=== PATIENT | male | born 1960 | race Caucasian/White ===

== ENCOUNTER → 2016-10-30 08:14 | Outpatient (CLI) | payer MEDICARE ==
[2016-01-30 06:29] VITALS: BMI 35.7
[~2016-10-30 08:14] MED LIST: CRESTOR20 MG PO; HYDROCODONE-APA1 TAB PO; LOTREL 5/10 MG1 CAP PO; LUNESTA3 MG PO; NAPROSYN500 MG PO; OMEPRAZOLE40 MG PO; PROTONIX40 MG PO; RESTORIL15 MG PO; SPIRIVA18 MCG INH; TOPROL XL25 MG PO; VENTOLIN HFA18 GM INH; ZYRTEC10 MG PO
== END | disposition home or self-care (01) ==
LOC: D.CT 10-28 08:30
DX: R91.8 Other nonspecific abnormal finding of lung field (principal)

== ENCOUNTER → 2018-01-06 10:36 | Outpatient (CLI) | payer OTHER ==
[2016-01-30 06:29] VITALS: BMI 35.7
[~2018-01-06 10:36] MED LIST changes: +AMBIEN10 MG PO; +MOBIC7.5 MG PO; +NITROSTAT0.4 MG SL
== END | disposition home or self-care (01) ==
LOC: D.CT 12-23 08:30 → D.MRI 12-23 08:30 → D.CT 10:30 → D.MRI 10:36 → D.CT 11:30
DX: R91.8 Other nonspecific abnormal finding of lung field (principal); M54.5 Low back pain

== ENCOUNTER 2018-01-29 19:55 | Emergency (ER) | payer OTHER ==
[~2018-01-29] VITALS: Ht 180.3 cm; Wt 108.0 kg
[~2018-01-29 19:55] MED LIST changes: -AMBIEN10 MG PO; -MOBIC7.5 MG PO; -NITROSTAT0.4 MG SL
[2018-01-29 20:00] VITALS: Ht 180.3 cm; Wt 108.0 kg
[2018-01-29] MEDS ORDERED: AMBIEN10 MG PO (20:02)
[2018-01-29] MEDS ORDERED: MOBIC7.5 MG PO (20:03)
[2018-01-29 20:41] LABS: BASOPHILS 0.5 % (0-2); HEMATOCRIT 42.6 % (42.0-54.0); HEMOGLOBIN 14.6 g/dL (13.5-17.5); IMMATURE GRANULOCYTES 0.1 % (0-5); LYMPHOCYTES 29.5 % (15-50); MCH 32.1 pg (26.0-34.0); MCHC 34.3 g/dL (31.0-37.0); MCV 93.6 fL (80.0-100.0); MEAN PLATELET VOLUME 9.5 fL (7.4-10.4); NEUTROPHILS 60.9 % (40-80); PLATELET COUNT 279 10x3/uL (130-400); RBC 4.55 10x6/uL (4.20-6.10); RDW 13.5 % (11.5-14.5); WBC 9.9 10x3/uL (4.8-10.8)
[2018-01-29 20:49] LABS: APTT 26.5 SECONDS (22.8-39.4); INR 1.02 (0.85-1.17)
[2018-01-29 21:04] LABS: ALBUMIN 3.5 g/dL (3.4-5.0); ALKALINE PHOSPHATASE 88 U/L (46-116); ALT (SGPT) 17 U/L (10-68); BILIRUBIN - TOTAL 0.34 mg/dL (0.2-1.3); CALCIUM 8.7 mg/dL (8.5-10.1); CARBON DIOXIDE 27.1 mmol/L (21.0-32.0); CHLORIDE - SERUM 105 mmol/L (98-107); CREATININE - SERUM 0.9 mg/dL (0.6-1.3); POTASSIUM - SERUM 3.3 mmol/L (3.5-5.1); PROTEIN - SERUM 7.3 g/dL (6.4-8.2); SODIUM 140 mmol/L (136-145); UREA NITROGEN 14 mg/dL (7-18); eGFR NON AFRICAN AMERICAN > 90 mL/min (90-120)
[2018-01-29 21:09] LABS: CKMB 1.7 U/L (0.0-3.6); CREATINE KINASE 267 UL (21-232); PRO BNP 83 pg/mL (0-125)
[2018-01-29 21:10] LABS: CALC OSMOLALITY 282 mosm/kg (275-300); GLUCOSE 156 mg/dL (74-106); TROPONIN-I < 0.017 ng/mL (0.000-0.060)
[2018-01-30] MEDS ORDERED: NITROSTAT0.4 MG SL (00:31)
[2018-01-30 00:55] VITALS: BP 128/76
== END 2018-01-30 00:55 | disposition home or self-care (01) ==
LOC: D.ER 19:55
PROVIDERS: Family Medicine
DX: R07.9 Chest pain, unspecified (principal); I20.9 Angina pectoris, unspecified; I10 Essential (primary) hypertension; F17.200 Nicotine dependence, unspecified, uncomplicated

== ENCOUNTER → 2018-03-14 08:32 | Outpatient (CLI) | payer OTHER ==
[~2018-03-14] VITALS: Ht 180.3 cm; Wt 108.2 kg
--- NOTE | ~2018-03-14 | HEMODYNAMI ---
PATIENT:PAO BARBA MEDICAL RECORD: [id number] : 60 LOCATION:[facility] ADMISSION DATE: 03/14/18 Generatedon:03/14/201811:10 Patient name: PAO BARBA Patient #: [id number] SSN: : 1960 Date of study: 03/14/2018 Page: Of Hemodynamic Procedure Report Patient Data Patient Demographics Procedure consent was obtained First Name: PAO Gender: Male Last Name: JAMESON : 1960 Middle Initial: E Age: 57 year(s) Patient #: [id number] Race: Unknown Additional ID: [id number] Contact details Address: [place] [address] State: [place] City: [place] Zip code: [address] Past Medical History Allergies Allergen Reaction Date Comments Reported Tegretol 03/14/2018 Admission Admission Data Admission Date: 03/14/2018 Admission Time: 8:32 Lab Results Lab Result Date: 03/14/2018 Lab Result Time: 0:00 Biochemistry Name Units Result Min Max BUN mg/dl 25 --(----)-* 7 18 Creatinine mg/dl 0.9 --(-*--)-- 0.6 1.3 CBC Name Units Result Min Max Hemoglobin g/dl 14.9 --(-*--)-- 13.5 17.5 Procedure Procedure Types Cath Procedure Diagnostic Procedure [facility] w/Coronaries FFR/IVUS Intra-Coronary IVUS Initial PCI Procedure Coronary Stent Coronary Stent Initial Procedure Description Procedure Date Procedure Date: 03/14/2018 Procedure Start Time: 10:51 Procedure End Time: 11:07 Procedure Staff Name Function Ayush Lantigua MD Performing Physician Konrad Meza RT Monitor Carleen Rosas RT Scrub Lena Pineda RN Nurse Jessi Patton RN Nurse Procedure Data Cath Procedure Fluoroscopy Diagnostic fluoroscopy Total fluoroscopy Time: 3.1 time: 3.1 min min Diagnostic fluoroscopy Total fluoroscopy dose: 945 dose: 945 mGy mGy Contrast Material Contrast Material Type Amount (ml) Isovue 300 112 Entry Location Entry Primary Successful Side Size Upsize Upsize Entry Closure Ervin ccessful Closure Location (Fr) 1 (Fr) 2 (Fr) Remarks Device Remarks Radial Right 6 Fr Mechanical artery Short Compression Diagnostic catheters Device Type Used For End Catheter Placement DIAGNOSTIC Stuart 110cm 5 LV Angiography Fr catheter ([id number]) Procedure Complications No complications Procedure Medications Medication Administration Route Dosage 0.9% NaCl I.V. 100 ml/hr Oxygen etCO2 Nasal cannula 2 l/min Lidocaine 2% added to field 20 Heparin Flush Bag added to field 2 bags (1000units/500ml NS) Versed I.V. 2 mg Fentanyl I.V. 100 mcg Radial Cocktail I.A. 1 syringe (Verapomil 2mg/Nitro 400mcg/Heparin 1500units) Fentanyl I.V. 100 mcg Heparin Bolus I.V. 4000 units Integrilin (Bolus I.V. 9.5 ml 2mg/ml) Plavix P.O. 600 mg Hemodynamics Rest HGB: 14.9 (g/dl) Heart Rate: 69 (bpm) Snapshots Pre Cath Intra NCS Post Cath Vital Signs Time Heart Resp SPO2 etCO2 NIBP (mmHg) Rhythm Pain Sedation Rate (ipm) (%) (mmHg) Status Level (bpm) 10:41:03 66 31 94 29 125/78(96) NSR 0 (11) 10(A) , No pain 10:45:19 67 18 95 29.2 121/73(89) NSR 0 (11) 10(A) , No pain 10:49:39 76 21 93 30 107/71(90) NSR 0 (11) 10(A) , No pain 10:53:51 80 23 92 32.2 113/72(89) NSR 0 (11) 9(A) , No pain 10:58:07 69 17 93 30 122/72(100) NSR 0 (11) 9(A) , No pain 11:02:27 69 14 93 29 128/74(99) NSR 0 (11) 9(A) , No pain 11:06:45 66 21 96 19.5 128/78(100) NSR 0 (11) 10(A) , No pain Medications Time Medication Route Dose Verified Delivered Reason Not es Effectiveness by by 10:44:31 0.9% NaCl I.V. 100 Ayush Lena used for ml/hr Grzegorz Pineda photo checker 10:44:43 Oxygen etCO2 2 l/min Ayush Lena used for Nasal Grzegorz Pineda procedure cannula RN 10:44:50 Lidocaine 2% added 20ml Ayush Peacock used for to vial Grzegorz Lantigua MD procedure field 10:44:56 Heparin Flush added 2 bags Ayush Peacock used for Bag to Grzegorz Lantigua MD procedure (1000units/500ml field NS) 10:49:15 Versed I.V. 2 mg Ayush Peacock for sedation Grzegorz Lantigua MD 10:49:22 Fentanyl I.V. 100 mcg Ayush Peacock for sedation Grzegorz Lantigua MD 10:52:29 Radial Cocktail I.A. 1 Ayush Peacock for (Verapomil syringe Grzegorz Lantigua MD vasodilation 2mg/Nitro 400mcg/Heparin 1500units) 10:59:58 Fentanyl I.V. 100 mcg Ayush Peacock for sedation Grzegorz Lantigua MD 11:01:45 Heparin Bolus I.V. 4000 Ayush Mayyla for tiburcio ified units Grzegorz Pineda anticoagulation with dr DEBBIE lantigua 11:02:08 Integrilin I.V. 9.5 ml Ayush Mayyla for Was kaylee (Bolus 2mg/ml) Grzegorz Pineda anticoagulation 0.5 ml RN of vial 11:05:31 Plavix P.O. 600 mg Ayush Mayyla for Grzegorz Pineda antiplatelet RN therapy Procedure Log Time Note 10:25:32 Konrad Meza RT(R) sent for patient. Start room use. 10:34:40 Signed procedure consent form obtained from patient. 10:34:42 Diagnostic Cath status Elective 10:34:43 Time tracking: Regular hours (M-F 7:00 - 5:00) 10:34:50 Plan of Care:Hemodynamics will remain stable., Cardiac rhythm will remain stable., Comfort level will be maintained., Respiratory function will remain adequate., Patient/ family verbilizes understanding of procedure., Procedure tolerated without complication., Recovers from procedure without complications.. 10:35:10 H&P Date Dictated: 03/09/2018 Within 30 days and on chart., H&P Addendum completed by physician on day of procedure. (MUST COMPLETE FOR ALL OUTPATIENTS). 10:39:54 Vital chart was started 10:44:15 Baseline sample Acquired. 10:44:18 Rhythm: sinus rhythm 10:44:19 Full Disclosure recording started 10:44:20 Pre-procedure instructions explained to patient. 10:44:20 Pre-op teaching completed and patient verbalized understanding. 10:44:22 Family in patients room. 10:44:24 Patient NPO since Midnight. 10:44:31 0.9% NaCl 100 ml/hr I.V. was administered by Lena Pineda RN; used for procedure; 10:44:37 Patient allergic to Tegretol 10:44:40 Is the patient allergic to Iodine/contrast media? No. 10:44:42 Is patient on blood thinner?No 10:44:43 Oxygen 2 l/min etCO2 Nasal cannula was administered by Lena Pineda RN; used for procedure; 10:44:44 Patient diabetic? No. 10:44:45 ----Pre-sedation anethsthesia assessment.---- 10:44:48 Previous problem with sedation/anesthesia? No ? 10:44:50 Lidocaine 2% 20ml vial added to field was administered by Ayush Lantigua MD; used for procedure; 10:44:56 Heparin Flush Bag (1000units/500ml NS) 2 bags added to field was administered by Ayush Lantigua MD; used for procedure; 10:45:06 Snore? Yes 10:45:09 Sleep apnea? No 10:45:11 Deviated septum? No 10:45:12 Opens mouth fully? Yes 10:45:14 Sticks out tongue? Yes 10:45:24 Airway obstruction? Yes COPD, EMPHYZEMIA 10:45:29 Dentures? No ? 10:45:32 Pre procedure: right dorsailis pedis pulse 1+ Palpable, but thready & weak; easily obliterated 10:45:37 Modified Benny's test Ulnar < 7 seconds 10:45:40 Patient pain scale 0/10 ?. 10:45:53 IV patent on arrival in left wrist with 0.9% NaCl at 10ml/hr. 10:48:24 Lab Result : BUN 25 mg/dl 10:48:24 Lab Result : Hemoglobin 14.9 g/dl 10:48:24 Lab Result : Creatinine 0.9 mg/dl 10:48:28 Lab results completed and on chart. 10:48:31 Right groin area was prepped with chlora-prep and draped in sterile fashion 10:48:32 Alarms reviewed by R. N. 10:48:32 Sharps counted by scrub and verified by R.N. 10:48:35 Physician arrived 10:48:35 --------ALL STOP TIME OUT------ 10:48:36 Final Timeout: patient, procedure, and site verified with staff and physician. All members of the team are in agreement. 10:48:38 Right groin site verified by team. 10:48:42 Physical assessment completed. ASA score P 2 - A patient with mild systemic disease as per Ayush Lantigua MD. 10:48:46 Sedation plan: IV Moderate Sedation Medication:Versed, Fentanyl 10:49:15 Versed 2 mg I.V. was administered by Ayush Lantigua MD; for sedation; 10:49:22 Fentanyl 100 mcg I.V. was administered by Ayush Lantigua MD; for sedation; 10:49:30 ACIST Syringe (84919) opened to sterile field. 10:49:31 Bag Decanter (2002) opened to sterile field. 10:49:31 Medline Cath Pack ([id number]) opened to sterile field. 10:49:32 DIAGNOSTIC WIRE .035 260cm J wire (055227) opened to sterile field. 10:49:33 ACIST Hand Control (57431) opened to sterile field. 10:49:33 ACIST Manifold (79980) opened to sterile field. 10:49:34 DIAGNOSTIC Multipack 5Fr catheter set (KB0605) opened to sterile field. 10:49:34 Tegaderm 4 x 4 (1626W) opened to sterile field. 10:49:37 SHEATH Prelude 5Fr 0.035 (QIG-7J-25-035) opened to sterile field. 10:51:12 Procedure started. 10:51:32 Local anesthetic to right femoral artery with Lidocaine 2% by Ayush Lantigua MD.INITIAL ACCESS ONLY 10:51:42 A 6 Fr Short sheath was inserted into the Right Radial artery 10:51:55 Use device set Radial Dx or PCI 10:51:57 ACIST Syringe (88702) opened to sterile field. 10:51:57 Medline Cath Pack ([id number]) opened to sterile field. 10:51:58 Bag Decanter () opened to sterile field. 10:52:02 DIAGNOSTIC WIRE .035 260cm J wire (752113) opened to sterile field. 10:52:02 ACIST Hand Control (29905) opened to sterile field. 10:52:03 ACIST Manifold (43932) opened to sterile field. 10:52:03 Tegaderm 4 x 4 (1626W) opened to sterile field. 10:52:03 MBrace Wrist Support ([id number]) opened to sterile field. 10:52:06 TR BAND Standard ([id number]) opened to sterile field. 10:52:12 SHEATH 6Fr Prelude Radial ([id number]) opened to sterile field. 10:52:16 A DIAGNOSTIC Stuart 110cm 5 Fr catheter (129875) was advanced over the wire and used for LV Angiography. 10:52:21 LV angiography performed. 10:52:29 Radial Cocktail (Verapomil 2mg/Nitro 400mcg/Heparin 1500units) 1 syringe I.A. was administered by Ayush Lantigua MD; for vasodilation; 10:52:31 LV gram done using HAHN 10:52:37 EF : 55 % 10:52:44 LCA angiography performed. 10:54:46 RCA angiography performed. 10:54:48 Catheter exchanged over wire. 10:55:17 [place]alla Lime Eagleye IVUS Catheter (93727G) opened to sterile field. 10:55:18 INFLATOR Merit BasixCompak (LD8210) opened to sterile field. 10:55:19 CHOICE PT Extra Support 182cm wire ([id number]) opened to sterile field. 10:55:36 Zero performed for pressure channel P1 10:55:40 Zero performed for pressure channel P1 10:55:59 GUIDE 6FR XBLAD 3.5 catheter (98975216) opened to sterile field. 10:56:14 6 Fr XBLAD 3.5 guide catheter was inserted over the wire 10:56:19 CPTES wire advanced. 10:56:23 FFR/IVUS 10:56:23 IVUS catheter advanced over wire. 10:56:28 IVUS pass to LAD lesion performed. 10:57:20 Procedure type changed to Cath procedure, Diagnostic procedure, LHC, C w/Coronaries, FFR/IVUS, Intra-Coronary IVUS Initial, PCI procedure, Coronary Stent, Coronary Stent Initial 10:59:58 Fentanyl 100 mcg I.V. was administered by Ayush Lantigua MD; for sedation; 11:00:35 IVUS catheter removed over wire. 11:01:45 Heparin Bolus 4000 units I.V. was administered by Lena Pineda RN; for anticoagulation; verified with dr lantigua 11:02:08 Integrilin (Bolus 2mg/ml) 9.5 ml I.V. was administered by Lena Pineda RN; for anticoagulation; Wasted 0.5 ml of vial 11:03:07 Inflate balloon Inflation number: 1 A INTEGRITY RX 4.0 x 22 stent ([id number]) was prepped and advanced across the Prox LAD, then inflated to 13 EVANS for 0:16 (min:sec). 11:03:52 Stent catheter was removed intact over wire. 11:03:52 Wire removed. 11:04:04 Guide catheter removed. 11:04:23 Sheath removed intact; hemostasis achieved with Mechanical Compression to the Right Radial artery. 11:04:25 Procedure ended.(Physican Out) 11:05:31 Plavix 600 mg P.O. was administered by Lena Pineda RN; for antiplatelet therapy; 11:05:52 Fluoroscopy time 03.10 minutes. 11:05:58 Fluoroscopy dose: 945 mGy 11:05:58 Flurop Dose total: 945 11:06:19 Contrast amount:Isovue 300 112ml. 11:06:22 Sharps counted by scrub and verified by R.N. 11:06:25 TR band inflated with 12cc of air. 11:06:35 Post procedure: right radial pulse 1+ Palpable, but thready & weak; easily obliterated. 11:06:38 Post procedure rhythm: sinus rhythm 11:06:41 Post procedure instruction explained to patient.Patient verbalizes understanding. 11:06:43 Procedure and supply charges have been captured, reviewed, submitted and are correct. 11:07:15 Procedure Complication : No complications 11:07:18 Vital chart was stopped 11:07:28 See physician's report for complete and final results. 11:07:32 Report given to Pre/Post Procedure Room. 11:07:35 Patient transfered to Pre/Post Procedure Room with Stretcher. 11:07:37 Procedure ended. 11:07:37 Full Disclosure recording stopped 11:07:57 ACC-PCI Only Patient was given prescriptions, or instructed by Ayush Lantigua MD to start/continue the following medications upon discharge: Plavix 11:07:59 End room use (Document Last) Intervention Summary Intervention Notes Time ActionType Lesion and Equipment Action# Pressure Duration Attributes Used 11:03:07 Inflate Prox LAD INTEGRITY RX 1 13 00:16 balloon 4.0 x 22 stent ([id number]) Device Usage Item Name Manufacture Quantity Catalog Number Hospital Part Current M inimal Lot# / Charge Number Stock Stock Serial# Code ACIST Syringe Acist 2 33739 522564 372310 848341 2 0 (75500) Medical Systems Inc Bag Decanter Microtek 2 2001S 944280 70479 585317 5 (2001S) Medical Inc. Medline Cath Cardinal 2 [id number] 188134 46668 102012 5 Imagen Biotech Health ([id number]) DIAGNOSTIC WIRE [place] 2 211710 508764 659027 965588 3 0 .035 260cm J wire (919578) ACIST Hand Acist 2 60254 886050 701948 010435 5 Control (88360) Medical Systems Inc ACIST Manifold Acist 2 06214 867270 068825 090034 5 (21067) Medical Systems Inc DIAGNOSTIC Cardinal 1 NP0343 179726 72955 510651 3 0 Multipack 5Fr Health catheter set (PP8099) Tegaderm 4 x 4 3M 2 1626W 546546 074923 589985 5 (1626W) SHEATH Prelude Merit 1 RSR-4T-15-035 053452 917105 927200 5 5Fr 0.035 Medical (YCW-9V-27-035) MBrace Wrist Advanced 1 140-0250-00 621007 01733 135120 5 Support Vascular ([id number]) Dynamics TR BAND Terumo 1 BLJ92-[id number] 512959 060897 505412 4 0 Standard ([id number]) SHEATH 6Fr Merit 1 [id number] 980574 606172 443928 5 Prelude Radial Medical ([id number]) DIAGNOSTIC Terumo 1 40-0138 520095 836639 300207 5 Stuart 110cm 5 Fr catheter (594730) Walhalla Walhalla 1 68381Y 846563 582067 457258 8 Lime Eagleye IVUS Catheter (29242T) INFLATOR Merit Merit 1 XU3199 474635 726301 077654 1 5 [facility], [employer] (YQ1188) CHOICE PT Extra [place] 1 [id number] 826217 850141 787393 5 Support 182cm Scientific wire ([id number]) GUIDE 6FR XBLAD Cardinal 1 [id number] 276534 066631 660107 1 0 3.5 catheter Health (06678936) INTEGRITY RX Medtronic 1 [id number] 446623 182773 251203 5 [id number] 4.0 x 22 stent ([id number]) Signature Audit [place] Stage Time Signature Unsigned Intra-Procedure 03/14/2018 Konrad AVENDANO([place]) 11:10:10 AM Signatures Monitor : Konrad AVENDANO Signature : Date : Time : [place] [address] [place] [address]
--- NOTE | ~2018-03-14 | OP ---
PATIENT NAME: PAO BARBA MEDICAL RECORD: [id number] :60 LOCATION:D.[facility] ADMISSION DATE: SURGEON: ZORA MOSS MD DATE OF OPERATION: 03/14/2018 PROCEDURES: 1. PTCA stent LAD. 2. Intravascular ultrasound. 3. Left heart catheterization. 4. Selective coronary angiography. 5. Left ventriculogram. INDICATION: Angina and coronary artery disease. PROCEDURE IN DETAIL: After informed consent was obtained and after a detailed description of the risks, benefits as well as alternative therapies, the patient elected to proceed with angiogram and angioplasty. The right radial area was prepped and draped in normal sterile fashion. Right radial artery was cannulated via modified Seldinger technique with placement of 6-Tamazight sheath. All catheters exchanged through this sheath. FINDINGS: Left ventriculogram was performed in standard 30-degree HAHN view, reveals good cardiac wall motion throughout all segments. Overall ejection fraction estimated 60%. SELECTIVE CORONARY ANGIOGRAPHY: 1. Left main is with no significant angiographic disease. 2. Left anterior descending has 65% to 70% stenosis proximally confirmed by intravascular ultrasound. 3. Left circumflex has mild irregularities, but no flow-limiting stenosis. 4. Right coronary artery is small, nondominant with no significant stenosis. PTCA STENT OF THE LAD: The stent used was a 4.0 x 22 mm Integrity. Result was 0% residual stenosis. OVERALL IMPRESSION: Successful percutaneous transluminal coronary angioplasty stent of the left anterior descending going from 65% to 70% stenosis confirmed by intravascular ultrasound to 0% residual stenosis. TRANSINT:[id number] Voice Confirmation ID: [id number] DOCUMENT ID: [id number] ZORA MOSS MD at 0924 CC: [id number] DICTATION DATE: 03/14/18 1108 CASSANDRA DEVELOPER: 03/14/18 1135 DEP CLI 03/14/18 [place] [address]
[~2018-03-14 08:32] MED LIST changes: +ALBUTEROL0.63 MG/3 INH; +AMBIEN10 MG PO; +ASPIRIN81 MG PO; +BREO ELLIPTA 11 EACH INH; +MOBIC7.5 MG PO; +NEXIUM40 MG PO; +NITROSTAT0.4 MG SL; +PLAVIX75 MG PO
[2018-03-14 09:03] VITALS: BP 130/77; Ht 180.3 cm; Wt 108.2 kg
[2018-03-14 09:28] LABS: CALC OSMOLALITY 283 mosm/kg (275-300); CALCIUM 9.3 mg/dL (8.5-10.1); CARBON DIOXIDE 23.7 mmol/L (21.0-32.0); CHLORIDE - SERUM 106 mmol/L (98-107); CREATININE - SERUM 0.9 mg/dL (0.6-1.3); GLUCOSE 114 mg/dL (74-106); POTASSIUM - SERUM 4.3 mmol/L (3.5-5.1); SODIUM 140 mmol/L (136-145); UREA NITROGEN 25 mg/dL (7-18); eGFR NON AFRICAN AMERICAN > 90 mL/min (90-120)
[2018-03-14 09:46] LABS: BASOPHILS 0.6 % (0-2); EOSINOPHILS 2.1 % (0-7); HEMATOCRIT 43.5 % (42.0-54.0); HEMOGLOBIN 14.9 g/dL (13.5-17.5); IMMATURE GRANULOCYTES 0.2 % (0-5); LYMPHOCYTES 24.9 % (15-50); MCH 32.3 pg (26.0-34.0); MCHC 34.3 g/dL (31.0-37.0); MCV 94.2 fL (80.0-100.0); MONOCYTES 11.2 % (2-11); PLATELET COUNT 278 10x3/uL (130-400); RBC 4.62 10x6/uL (4.20-6.10); RDW 13.7 % (11.5-14.5)
== END | disposition home or self-care (01) ==
LOC: D.CATH 08:32
PROVIDERS: Internal Medicine Interventional Cardiology
DX: I25.119 Atherosclerotic heart disease of native coronary artery with unspecified angina pectoris (principal); Z01.812 Encounter for preprocedural laboratory examination

== ENCOUNTER 2018-09-24 13:01 | Observation (INO) | payer MEDICARE ==
[~2018-09-24] VITALS: Ht 180.3 cm; Wt 98.2 kg
[2018-09-24 13:29] LABS: BASOPHILS 0.7 % (0-2); EOSINOPHILS 2.2 % (0-7); HEMATOCRIT 40.9 % (42.0-54.0); HEMOGLOBIN 14.2 g/dL (13.5-17.5); IMMATURE GRANULOCYTES 0.1 % (0-5); LYMPHOCYTES 36.7 % (15-50); MCH 32.5 pg (26.0-34.0); MCHC 34.7 g/dL (31.0-37.0); MCV 93.6 fL (80.0-100.0); MONOCYTES 7.2 % (2-11); NEUTROPHILS 53.1 % (40-80); PLATELET COUNT 241 10x3/uL (130-400); RBC 4.37 10x6/uL (4.20-6.10); RDW 12.8 % (11.5-14.5); WBC 8.3 10x3/uL (4.8-10.8)
--- NOTE | 2018-09-24 13:35 | NUR ---
ORDER FOR NITRO, PT STATES THAT HE HAS TAKEN VIAGRA LAST NIGHT APPROX 2200. ERP INFORMED. CALL TO PHARMACY. MARTELL STATES THAT THE HALF LIFE IS 4 HRS, SOME OF THE VIAGRA WILL STILL BE IN THE SYSTEM BUT IT WILL HAVE PASSED 3 HALF LIFE PERIODS AND THE LEVEL OF VIAGRA SHOULD BE MINIMAL. ERP INFORMED, ORDER TO ONLY GIVE NTG X 1 AND MONITOR BP. INFORMED PT OF CONCERNS AND TO REPORT FEELING DIZZY, LIGHTHEADED, OR FAINT. HE VOICED UNDERSTANDING AND AGREEDD TO TAKE NTG X 1.
[2018-09-24 13:37] LABS: APTT 27.9 SECONDS (22.8-39.4); INR 0.99 (0.85-1.17); PROTIME 12.6 SECONDS (11.6-15.0)
[2018-09-24 13:43] LABS: ALBUMIN 3.5 g/dL (3.4-5.0); ALKALINE PHOSPHATASE 83 U/L (46-116); ALT (SGPT) 20 U/L (10-68); BILIRUBIN - TOTAL 0.41 mg/dL (0.2-1.3); CALC OSMOLALITY 277 mosm/kg (275-300); CALCIUM 8.5 mg/dL (8.5-10.1); CARBON DIOXIDE 25.6 mmol/L (21.0-32.0); CHLORIDE - SERUM 103 mmol/L (98-107); CREATININE - SERUM 0.8 mg/dL (0.6-1.3); GLUCOSE 103 mg/dL (74-106); POTASSIUM - SERUM 4.1 mmol/L (3.5-5.1); PROTEIN - SERUM 7.2 g/dL (6.4-8.2); SODIUM 139 mmol/L (136-145); UREA NITROGEN 13 mg/dL (7-18); eGFR NON AFRICAN AMERICAN > 90 mL/min (90-120)
--- NOTE | 2018-09-24 13:52 | NUR ---
REPORTS PAIN IMPROVED WITH NTG. NOW RATES PAIN 2/10.
[2018-09-24 13:55] LABS: CKMB 1.4 U/L (0.0-3.6); CREATINE KINASE 218 UL (21-232); MAGNESIUM - SERUM 1.7 mg/dL (1.8-2.4); TROPONIN-I < 0.017 ng/mL (0.000-0.060)
[2018-09-24 14:04] VITALS: BP 113/71
--- NOTE | 2018-09-24 15:19 | NUR ---
PATIENT ARRIVED TO UNIT AND ADMITTED TO ROOM 2120 VIA WHEELCHAIR FROM THE ED. PATIENT ALERT, ORIENTED, AND AMBULATORY. PATIENT WITH 20 GAUGE IV TO RIGHT HAND, SALINE LOCKED. TELEMETRY APPLIED. NO DISTRESS. CALL LIGHT WITHIN REACH.
[2018-09-24] MEDS ORDERED: LOTREL 10-40 M1 EACH PO (16:35)
[2018-09-24] MEDS ORDERED: MOBIC7.5 MG PO (16:36)
[2018-09-24] MEDS ORDERED: BREO ELLIPTA 21 EACH (16:40)
[2018-09-24 17:06] VITALS: BP 111/78; Ht 180.3 cm; Wt 98.2 kg
--- NOTE | 2018-09-24 17:16 | NUR ---
RESTING IN BED WITH FEMALE VISITOR AT BEDSIDE. CALL LIGHT WITHIN REACH. NO DISTRESS. DENIES NEEDS AT THIS TIME. SR ON TELEMETRY.
[2018-09-24 17:23] VITALS: BP 111/78
--- NOTE | 2018-09-24 18:08 | NUR ---
PHARMACY AND PRIMARY CARE PHYSICIAN CONFIRMED WITH PATIENT. DENIES NEEDS. NO DISTRESS.
[2018-09-24 20:00] VITALS: BP 129/69
--- NOTE | 2018-09-24 20:03 | NUR ---
INITIAL ROUNDS COMPLETED AT 1910 HRS. PT DEIED ANY DISCOMFORT. ASSESSMENT COMPLETED AT 1999 HRS. VSS. SR PER CM HR 69. ALERT AND ORIENTED TO PERSON, PLACE AND TIME. LUNGS DIMINISHED IN BASES BILAT. IV TO R HAND WITH NS AT 50CC/HR. SR UP X2, CALL LIGHT WITHIN REACH.
--- NOTE | 2018-09-24 21:52 | NUR ---
EKG DONE. PT DENIED ANY DISCOMFORT. FIANCEE AT BEDSIDE.
[2018-09-24 21:53] LABS: CKMB 0.9 U/L (0.0-3.6); CREATINE KINASE 173 UL (21-232)
[2018-09-24 21:56] LABS: TROPONIN-I < 0.017 ng/mL (0.000-0.060)
[2018-09-25] VITALS: BP 119/64
--- NOTE | 2018-09-25 00:14 | NUR ---
PT RESTING WITH EYES CLOSED. RESP EVEN AND REGULAR. FIANCEE AT BEDSIDE. SR UP X2, CALL LIGHT WITHIN REACH.
[2018-09-25 01:57] LABS: BASOPHILS 0.7 % (0-2); EOSINOPHILS 4.2 % (0-7); HEMATOCRIT 40.3 % (42.0-54.0); HEMOGLOBIN 13.6 g/dL (13.5-17.5); IMMATURE GRANULOCYTES 0.1 % (0-5); LYMPHOCYTES 41.8 % (15-50); MCH 31.6 pg (26.0-34.0); MCHC 33.7 g/dL (31.0-37.0); MCV 93.5 fL (80.0-100.0); MEAN PLATELET VOLUME 9.2 fL (7.4-10.4); MONOCYTES 12.8 % (2-11); NEUTROPHILS 40.4 % (40-80); PLATELET COUNT 236 10x3/uL (130-400); RBC 4.31 10x6/uL (4.20-6.10); RDW 12.7 % (11.5-14.5); WBC 7.1 10x3/uL (4.8-10.8)
--- NOTE | 2018-09-25 02:13 | NUR ---
PT RESTING WITH EYES CLOSED. RESP EVEN AND REGULAR. SR UP X2, CALL LIGHT WITHIN REACH.
[2018-09-25 02:21] LABS: ALBUMIN 2.9 g/dL (3.4-5.0); ALKALINE PHOSPHATASE 76 U/L (46-116); ALT (SGPT) 19 U/L (10-68); BILIRUBIN - TOTAL 0.19 mg/dL (0.2-1.3); CALC OSMOLALITY 283 mosm/kg (275-300); CALCIUM 8.7 mg/dL (8.5-10.1); CARBON DIOXIDE 29.4 mmol/L (21.0-32.0); CHLORIDE - SERUM 108 mmol/L (98-107); CREATINE KINASE 148 UL (21-232); CREATININE - SERUM 0.7 mg/dL (0.6-1.3); GLUCOSE 95 mg/dL (74-106); MAGNESIUM - SERUM 1.8 mg/dL (1.8-2.4); POTASSIUM - SERUM 4.4 mmol/L (3.5-5.1); PROTEIN - SERUM 6.3 g/dL (6.4-8.2); SODIUM 143 mmol/L (136-145); TROPONIN-I < 0.017 ng/mL (0.000-0.060); UREA NITROGEN 11 mg/dL (7-18); eGFR NON AFRICAN AMERICAN > 90 mL/min (90-120)
--- NOTE | 2018-09-25 03:54 | NUR ---
PT DENIES ANY DISCOMFORT. FIANCEE AT BEDSIDE.
[2018-09-25 04:00] VITALS: BP 121/76
--- NOTE | 2018-09-25 06:14 | NUR ---
VSS THROUGHOUT NIGHT. PT DENIED ANY DISCOMFORT. NEEDS MET; WILL CONTINUE TO MONITOR.
--- NOTE | 2018-09-25 07:00 | NUR ---
RECEIVED REPORT. ASSUMED CARE OF PATIENT. CALL LIGHT WITHIN REACH. RESTING IN BED WITH EYES OPEN. SMILING. NO DISTRESS. DENIES NEEDS. FEMALE VISITOR ASLEEP IN CHAIR AT BEDSIDE.
[2018-09-25 08:14] VITALS: BP 116/59
--- NOTE | 2018-09-25 08:43 | NUR ---
RECEIVED VERBAL ORDER TO SEND PRESCRIPTION FOR NITRO SL TO PATIENT PHARMACY. ATTEMPTED TO CALL [facility] ON [address], PHARMACY DOES NOT OPEN UNITL 11AM ON Wednesday (TODAY).
--- NOTE | 2018-09-25 10:46 | NUR ---
1030 20 GAUGE IV REMOVED FROM RIGHT HAND. PRESSURE HELD. NO BLEEDING FROM SITE. 2X2 GAUZE APPLIED AND SECURED WITH BANDAID. CATHETER TIP INTACT. 1040 DISCHARGE INSTRUCTIONS PROVIDED TO PATIENT. VERBALZIED UNDERSTANDING OF ALL INSTRUCTIONS. PATIENT GIVEN ONE BOTTLE OF NITRO PILLS TO TAKE WITH HIM DUE TO HIS PHARMACY IS NOT OPEN YET AND UNABLE TO CALL IN PRESCRIPTION TO PHARMACIST. NITRO SCANNED ON EMAR. PATIENT LEFT UNIT AT THIS TIME VIA WHEELCHAIR. PATIENT DISCHARGED TO HOME WITH HIS FIANCE. PATIENT LEFT UNIT WITH ALL PERSONAL BELONGINGS. NO DISTRESS UPON LEAVING UNIT.
== END 2018-09-25 10:40 | disposition home or self-care (01) ==
LOC: D.ER 13:01 → OBSVTIME 14:21 → D.EDHOLD 14:21 → D.M2 15:01
PROVIDERS: Family Medicine; ADMIT Family Medicine; ATTEND Family Medicine
DX: I25.110 Atherosclerotic heart disease of native coronary artery with unstable angina pectoris (principal); I10 Essential (primary) hypertension; E78.5 Hyperlipidemia, unspecified; J44.9 Chronic obstructive pulmonary disease, unspecified; J96.21 Acute and chronic respiratory failure with hypoxia; F17.213 Nicotine dependence, cigarettes, with withdrawal

== ENCOUNTER 2018-09-26 09:36 | Outpatient (CLI) | payer MEDICARE ==
[~2018-09-26] VITALS: Ht 180.3 cm; Wt 101.8 kg
--- NOTE | ~2018-09-26 | HEMODYNAMI ---
PATIENT:PAO BARBA MEDICAL RECORD: [id number] : 60 LOCATION:[facility] ADMISSION DATE: 09/26/18 Generatedon:09/26/201813:28 Patient name: PAO BARBA Patient #: [id number] SSN: : 1960 Date of study: 09/26/2018 Page: Of Hemodynamic Procedure Report Patient Data Patient Demographics Procedure consent was obtained First Name: PAO Gender: Male Last Name: JAMESON : 1960 Middle Initial: E Age: 58 year(s) Patient #: [id number] Race: Unknown Additional ID: [id number] Contact details Address: [address] [place] [address] State: [place] City: [place] Zip code: [address] Past Medical History Allergies Allergen Reaction Date Comments Reported Tegretol 03/14/2018 Other allergy 09/26/2018 tegretol Admission Admission Data Admission Date: 09/26/2018 Admission Time: 9:36 Procedure Procedure Types Cath Procedure Diagnostic Procedure [facility] w/Coronaries Sedation Charges Moderate Sedation up to 15 minutes Procedure Description Procedure Date Procedure Date: 09/26/2018 Procedure Start Time: 13:08 Procedure End Time: 13:27 Procedure Staff Name Function John Hickey MD Performing Physician Altagracia Baca RT Monitor Federico Carmona RN Nurse Konrad Meza RT Scrub Procedure Data Cath Procedure Fluoroscopy Diagnostic fluoroscopy Total fluoroscopy Time: 4.8 time: 4.8 min min Diagnostic fluoroscopy Total fluoroscopy dose: 942 dose: 942 mGy mGy Contrast Material Contrast Material Type Amount (ml) Isovue 300 76 Entry Location Entry Primary Successful Side Size Upsize Upsize Entry Closure Ervin ccessful Closure Location (Fr) 1 (Fr) 2 (Fr) Remarks Device Remarks Radial Right 6 Fr Mechanical artery Short Compression Estimated blood loss: 5 ml Diagnostic catheters Device Type Used For End Catheter Placement DIAGNOSTIC Kasi 110cm LV Angiography 5Fr catheter ([id number]) DIAGNOSTIC Kasi 110cm Left Coronary 5Fr catheter ([id number]) Angiography DIAGNOSTIC Kasi 110cm Right Coronary 5Fr catheter ([id number]) Angiography DIAGNOSTIC Lakia 5Fr Left Coronary catheter (164396) Angiography DIAGNOSTIC [facility] 110cm 5 Left Coronary Fr catheter ([id number]) Angiography Procedure Complications No complications Procedure Medications Medication Administration Route Dosage 0.9% NaCl I.V. 100 ml/hr Oxygen etCO2 Nasal cannula 2 l/min Heparin Flush Bag added to field 2 bags (1000units/500ml NS) Lidocaine 2% added to field 20 Radial Cocktail added to field 1 syringe (Verapomil 2mg/Nitro 400mcg/Heparin 1500units) Versed I.V. 2 mg Fentanyl I.V. 100 mcg Radial Cocktail I.A. 1 syringe (Verapomil 2mg/Nitro 400mcg/Heparin 1500units) Hemodynamics Rest Heart Rate: 62 (bpm) Pressure Samples Time Site Value (mmHg) Purpose Heart Use Rate(bpm) 13:11 LV 120/-7,5 EDP 85 Gradients Valve Time Site Site Mean SEP/DFP Peak To Heart Use 1 2 (mmHg) (sec/min) Peak Rate (mmHg) (bpm) Aortic 13:11 LV AO 84 Snapshots Pre Cath Intra NCS Post Cath Vital Signs Time Heart Resp SPO2 etCO2 NIBP Rhythm Pain Sedation Rate (ipm) (%) (mmHg) (mmHg) Status Level (bpm) 12:55:24 63 28 98 9.7 115/69(86) NSR 0 (11) 10(A) , No pain 12:59:32 63 23 95 10.5 111/71(88) NSR 0 (11) 10(A) , No pain 13:03:38 64 25 95 12 114/72(85) NSR 0 (11) 10(A) , No pain 13:07:46 71 19 89 18.8 104/67(81) NSR 0 (11) 9(A) , No pain 13:11:52 83 25 92 18.8 99/65(80) NSR 0 (11) 10(A) , No pain 13:15:53 75 22 91 9.7 102/68(80) NSR 0 (11) 10(A) , No pain 13:19:57 65 24 93 0.7 111/67(82) NSR 0 (11) 10(A) , No pain 13:24:03 64 22 93 13.5 114/69(83) NSR 0 (11) 10(A) , No pain Medications Time Medication Route Dose Verified Delivered Reason Notes Effectiveness by by 12:53:27 0.9% NaCl I.V. 100 Federico Federico Per ml/hr Mathew Carmona physician RN RN 12:53:37 Oxygen etCO2 2 l/min Federico Federico for low 02 Nasal Lorigan Mathew sats cannula RN RN 12:53:47 Heparin Flush added 2 bags Federico Federico used for Bag to Lorcaitlin Carmona procedure (1000units/500ml field RN RN NS) 12:53:58 Lidocaine 2% added 20ml Federico Federico for local to vial Lorigan Mathew anesthetic field RN RN 12:54:15 Radial Cocktail added 1 Federico Federico used for (Verapomil to syringe Summerigan Mathew procedure 2mg/Nitro field RN RN 400mcg/Heparin 1500units) 13:02:26 Versed I.V. 2 mg Federico Federico for sedation Mathew Carmona RN RN 13:02:35 Fentanyl I.V. 100 mcg Federico Federico for sedation Mathew Carmona RN RN 13:10:54 Radial Cocktail I.A. 1 Federico John for (Verapomil syringe Mathew Hickey MD vasodilation 2mg/Nitro RN 400mcg/Heparin 1500units) Procedure Log Time Note 12:42:02 Konrad Meza RT(R) sent for patient. Start room use. 12:42:03 Time tracking: Regular hours (M-F 7:00 - 5:00) 12:42:07 Plan of Care:Hemodynamics will remain stable., Cardiac rhythm will remain stable., Comfort level will be maintained., Respiratory function will remain adequate., Patient/ family verbilizes understanding of procedure., Procedure tolerated without complication., Recovers from procedure without complications.. 12:47:24 Patient received from Pre/Post Procedure Room to CCL 2 Alert and oriented. Tansferred to table in Supine position. 12:47:25 Warm blankets applied, and renae hugger turned on for patient comfort. 12:47:26 Correct patient and procedure confirmed by team. 12:47:27 Signed procedure consent form obtained from patient. 12:47:28 ECG and BP/O2 sat monitors applied to patient. 12:47:28 Full Disclosure recording started 12:53:27 0.9% NaCl 100 ml/hr I.V. was administered by Federico Carmona RN; Per physician; 12:53:37 Oxygen 2 l/min etCO2 Nasal cannula was administered by Federico Carmona RN; for low 02 sats; 12:53:47 Heparin Flush Bag (1000units/500ml NS) 2 bags added to field was administered by Federico Carmona RN; used for procedure; 12:53:58 Lidocaine 2% 20ml vial added to field was administered by Federico Carmona RN; for local anesthetic; 12:54:15 Radial Cocktail (Verapomil 2mg/Nitro 400mcg/Heparin 1500units) 1 syringe added to field was administered by Federico Carmona RN; used for procedure; 12:54:16 Vital chart was started 12:59:07 Baseline sample Acquired. 12:59:10 Rhythm: sinus rhythm 12:59:20 H&P Date Dictated: 09/24/2018 Within 30 days and on chart., H&P Addendum completed by physician on day of procedure. (MUST COMPLETE FOR ALL OUTPATIENTS). 12:59:21 Pre-procedure instructions explained to patient. 12:59:22 Pre-op teaching completed and patient verbalized understanding. 12:59:24 Family in patients room. 12:59:25 Patient NPO since Midnight. 12:59:36 Patient allergic to Other allergytegretol 12:59:38 Patient diabetic? No. 12:59:46 Previous problem with sedation/anesthesia? No ? 12:59:47 Snore? Yes 12:59:48 Sleep apnea? No 12:59:49 Deviated septum? No 12:59:49 Opens mouth fully? Yes 12:59:50 Sticks out tongue? Yes 12:59:52 Airway obstruction? No ? 12:59:54 Dentures? No ? 12:59:56 Pre procedure: right dorsailis pedis pulse 2+ Normal; easily identifiable; not easily obliterated 12:59:58 Modified Benny's test Ulnar < 7 seconds 12:59:59 Patient pain scale 0/10 ?. 13:00:04 IV patent on arrival in left forearm with 0.9% NaCl at [facility]. 13:00:05 Lab results completed and on chart. 13:00:09 Right Radial & Right Groin area was prepped with chlora-prep and draped in sterile fashion 13:00:10 Alarms reviewed by R. N. 13:00:10 Sharps counted by scrub and verified by R.N. 13:00:15 Use device set Radial Dx or PCI 13:00:16 ACIST Syringe (39841) opened to sterile field. 13:00:16 Medline Cath Pack ([id number]) opened to sterile field. 13:00:16 Bag Decanter (2002S) opened to sterile field. 13:00:17 DIAGNOSTIC WIRE .035 260cm J wire (140148) opened to sterile field. 13:00:17 ACIST Hand Control (64973) opened to sterile field. 13:00:18 ACIST Manifold (94091) opened to sterile field. 13:00:22 MBrace Wrist Support ([id number]) opened to sterile field. 13:00:23 NEEDLE Cook 21G 4cm Radial (C41200) opened to sterile field. 13:00:24 SHEATH 6FR Slender (35-8277) opened to sterile field. 13:01:28 Final Timeout: patient, procedure, and site verified with staff and physician. All members of the team are in agreement. 13:01:32 Right Radial site verified by team. 13:01:33 Maximum allowable Isovue 300 dose 300ml. Physician notified. (300ml for normal creatinines. For patients with creatinine of 1.7 or higher multiply weight(kg) x 5 divided by creatinine.) 13:01:49 Fire Safety Assessment: A--An alcohol-based skin anteseptic being used preoperatively., C--Open oxygen or nitrous oxide is being used., D--An ESU, laser, or fiber-optic light is being used. 13:01:51 Physical assessment completed. ASA score P 2 - A patient with mild systemic disease as per John Hickey MD. 13:01:54 Sedation plan: IV Moderate Sedation Medication:Versed, Fentanyl 13:02:26 Versed 2 mg I.V. was administered by Federico Carmona RN; for sedation; 13:02:35 Fentanyl 100 mcg I.V. was administered by Federico Carmona RN; for sedation; 13:05:16 Zero performed for pressure channel P1 13:05:20 Zero performed for pressure channel P1 13:05:23 Zero performed for pressure channel P1 13:08:43 Procedure started. 13:08:50 Local anesthetic to right radial artery with Lidocaine 2% by John Hickey MD.INITIAL ACCESS ONLY 13:09:49 A 6 Fr Short sheath was inserted into the Right Radial artery 13:10:28 A DIAGNOSTIC Kasi 110cm 5Fr catheter (312175) was advanced over the wire and used for LV Angiography. 13:10:54 Radial Cocktail (Verapomil 2mg/Nitro 400mcg/Heparin 1500units) 1 syringe I.A. was administered by John Hickey MD; for vasodilation; 13:11:30 LV gram done using HAHN 13:11:31 LV hemodynamics recorded. 13:11:35 Injector settings: Ml/sec: 5, Volume: 15, 13:11:54 EF : 55 % 13:12:45 A DIAGNOSTIC Kasi 110cm 5Fr catheter ([id number]) was advanced over the wire and used for Left Coronary Angiography. unable to cannulate 13:14:27 A DIAGNOSTIC Kasi 110cm 5Fr catheter (597846) was advanced over the wire and used for Right Coronary Angiography. 13:15:15 Catheter removed. 13:15:55 A DIAGNOSTIC Lakia 5Fr catheter (199525) was advanced over the wire and used for Left Coronary Angiography. unable to cannulate 13:18:03 Catheter removed. 13:18:40 A DIAGNOSTIC [facility] 110cm 5 Fr catheter (089272) was advanced over the wire and used for Left Coronary Angiography. 13:22:25 Catheter removed. 13:22:32 TR BAND Standard ([id number]) opened to sterile field. 13:22:47 Sheath removed intact; hemostasis achieved with Mechanical Compression to the Right Radial artery. 13:22:49 Procedure ended.(Physican Out) 13:22:53 Fluoroscopy time 04.80 minutes. 13:23:03 Fluoroscopy dose: 942 mGy 13:23:03 Flurop Dose total: 942 13:23:08 Contrast amount:Isovue 300 76ml. 13:23:10 Sharps counted by scrub and verified by R.N. 13:23:12 TR band inflated with 12cc of air. 13:23:13 Insertion/operative site no bleeding no hematoma. 13:23:20 Post right radial artery:stable, clean and dry 13:23:25 Post Procedure Pulses reassessed and unchanged 13:23:28 Post-procedure physical assessment completed. ASA score P 2 - A patient with mild systemic disease as per John Hickey MD. 13:23:32 Post procedure rhythm: unchanged. 13:23:35 Estimated blood loss: 5 ml 13:23:37 Post procedure instruction explained to patient.Patient verbalizes understanding. 13:23:37 Patient needs reinforcement of post procedure teaching. 13:23:43 Procedure Complication : No complications 13:24:07 Procedure type changed to Cath procedure, Diagnostic procedure, LHC, LHC w/Coronaries, Sedation Charges, Moderate Sedation up to 15 minutes 13:24:10 See physician's report for complete and final results. 13:24:31 Procedure and supply charges have been captured, reviewed, submitted and are correct. 13:27:12 Vital chart was stopped 13:27:23 Report given to Pre/Post Procedure Room. 13:27:26 Patient transfered to Pre/Post Procedure Room with Stretcher. 13:27:34 Procedure ended. 13:27:34 Full Disclosure recording stopped 13:27:38 End room use (Document Last) Device Usage Item Name Manufacture Quantity Catalog Hospital Part Current Minimal Lot# / Number Charge Number Stock Stock Serial# Code ACIST Acist 1 43055 [id number] 20 Syringe Medical (21044) Systems Inc Medline Medline 1 [id number] 995507 65774 150342 5 Cath Pack ([id number]) Bag Microtek 1 2001S 623268 65738 930322 5 Decanter Medical Inc. () DIAGNOSTIC [facility] [place] 1 644565 665556 187733 733852 30 WIRE .035 260cm J wire (545990) ACIST Hand Acist 1 68075 137360 879021 507935 5 Control Medical (10326) Systems Inc ACIST Acist 1 65593 709143 146266 638421 5 Manifold Medical (11341) Systems Inc MBrace Advanced 1 140-0250-00 753076 16565 535641 5 Wrist Vascular Support Dynamics ([id number]) NEEDLE [employer] Medical 1 F41141 044563 992579 424533 5 21G 4cm Radial (B43301) SHEATH 6FR Terumo 1 [id number] 973633 743849 206967 5 Slender (80-1060) DIAGNOSTIC Terumo 1 40396 104693 101019 998269 5 Kasi 110cm 5Fr catheter (869043) DIAGNOSTIC Terumo 1 40502 898159 910094 600677 5 Lakia 5Fr catheter (915829) DIAGNOSTIC Terumo 1 40644 890044 613058 838259 5 [facility] 110cm 5 Fr catheter (014990) TR BAND Terumo 1 [id number] 484339 209336 767608 40 Standard ([id number]) Signature Audit Burke Stage Time Signature Unsigned Intra-Procedure 09/26/2018 Altagracia 1:28:23 PM Counts RT(R) Signatures Monitor : Altagracia Signature : Counts RT Date : Time : [id number] [place] [address]
[~2018-09-26 09:36] MED LIST changes: +BREO ELLIPTA 21 EACH; +LOTREL 10-40 M1 EACH PO
[2018-09-26 10:31] VITALS: BP 138/75; Ht 180.3 cm; Wt 101.8 kg
[2018-09-26 10:57] LABS: CALC OSMOLALITY 277 mosm/kg (275-300); CALCIUM 9.3 mg/dL (8.5-10.1); CARBON DIOXIDE 23.7 mmol/L (21.0-32.0); CHLORIDE - SERUM 103 mmol/L (98-107); CREATININE - SERUM 0.8 mg/dL (0.6-1.3); GLUCOSE 113 mg/dL (74-106); SODIUM 138 mmol/L (136-145); UREA NITROGEN 15 mg/dL (7-18); eGFR NON AFRICAN AMERICAN > 90 mL/min (90-120)
[2018-09-26 11:48] LABS: BASOPHILS 0.5 % (0-2); HEMOGLOBIN 15.5 g/dL (13.5-17.5); IMMATURE GRANULOCYTES 0.1 % (0-5); LYMPHOCYTES 25.2 % (15-50); MCH 32.2 pg (26.0-34.0); MCHC 34.4 g/dL (31.0-37.0); MCV 93.6 fL (80.0-100.0); MEAN PLATELET VOLUME 9.4 fL (7.4-10.4); MONOCYTES 10.1 % (2-11); NEUTROPHILS 63.1 % (40-80); RBC 4.81 10x6/uL (4.20-6.10); RDW 12.8 % (11.5-14.5)
[2018-09-26 11:53] LABS: PLATELET COUNT 300 10x3/uL (130-400); WBC 9.2 10x3/uL (4.8-10.8)
--- NOTE | 2018-09-26 13:50 | NUR ---
PATIENT RESTING, FAMILY PRESENT AT BEDSIDE. VSS ON ROOM AIR. RIGHT TR BAND IN PLACE, NO S/S OF BLEEDING OR HEMATOMA. NO C/O PAIN, NUMBNESS, OR TINGLING.
--- NOTE | 2018-09-26 14:20 | NUR ---
BEGIN AIR REMOVAL PROTOCOL FOR TR BAND, NO S/S OF BLEEDING OR HEMATOMA NOTED. 5CC OF AIR REMOVED. VSS ON ROOM AIR. NO C/O PAIN,NUMBNESS, OR TINGLING.
--- NOTE | 2018-09-26 14:50 | NUR ---
REMAINING AIR REMOVED FROM TR BAND, NO S/S OF BLEEDING OR HEMATOMA. DRESSING APPLIED TO RIGHT RADIAL SITE. VSS ON ROOM AIR. NO C/O PAIN, NUMBNESS, OR TINGLING. NO N/V. IV REMOVED.
--- NOTE | 2018-09-26 15:20 | NUR ---
EDUCATION REGARDING DISCHARGE INSTRUCTIONS GIVEN TO PATIENT AND FAMILY, BOTH VOICE UNDERSTANDING. VSS ON ROOM AIR. RIGHT RADIAL DRESSING IS CDI, NO S/S OF BLEEDING OR HEMATOMA. PATIENT VOIDED WITHOUT DIFFICULTY.
--- NOTE | 2018-09-26 15:30 | NUR ---
PATIENT TRANSPORTED VIA WHEELCHAIR TO CAR WITH FAMILY DRIVING, ALL BELONGINGS WITH PATIENT.
== END 2018-09-26 15:30 ==
LOC: D.CATH 09:36
PROVIDERS: ATTEND Internal Medicine Cardiovascular Disease
DX: I25.110 Atherosclerotic heart disease of native coronary artery with unstable angina pectoris (principal)

== ENCOUNTER → 2019-03-21 18:03 | Outpatient (CLI) | payer OTHER ==
[2018-09-26 10:31] VITALS: BMI 31.3
[~2019-03-21 18:03] MED LIST changes: +HYDROCODONE-A1 UDTA2 PO; +NEURONTIN 300300 MG PO; +VOLTAREN75 MG PO
== END | disposition home or self-care (01) ==
LOC: D.LABREF 18:03
PROVIDERS: ATTEND Orthopaedic Surgery
DX: M17.12 Unilateral primary osteoarthritis, left knee (principal)

== ENCOUNTER → 2019-03-30 12:52 | Outpatient (CLI) | payer OTHER ==
[2018-09-26 10:31] VITALS: BMI 31.3
== END | disposition home or self-care (01) ==
LOC: D.CT 12:52
PROVIDERS: ATTEND Emergency Medicine
DX: R91.8 Other nonspecific abnormal finding of lung field (principal)

== ENCOUNTER 2019-04-15 15:28 | Emergency (ER) | payer OTHER ==
[~2019-04-15] VITALS: Ht 180.3 cm; Wt 103.2 kg
[~2019-04-15 15:28] MED LIST changes: -VOLTAREN75 MG PO
[2019-04-15 15:33] VITALS: Ht 180.3 cm; Wt 103.2 kg
[2019-04-15] MEDS ORDERED: VOLTAREN75 MG PO (16:34)
[2019-04-15 17:29] VITALS: BP 125/78
== END 2019-04-15 17:29 | disposition home or self-care (01) ==
LOC: D.ER 15:28
DX: S63.91XA Sprain of unspecified part of right wrist and hand, initial encounter (principal); X50.9XXA Other and unspecified overexertion or strenuous movements or postures, initial encounter; M25.741 Osteophyte, right hand; I10 Essential (primary) hypertension; I25.10 Atherosclerotic heart disease of native coronary artery without angina pectoris; Z72.0 Tobacco use; J44.9 Chronic obstructive pulmonary disease, unspecified; Z99.81 Dependence on supplemental oxygen; K21.9 Gastro-esophageal reflux disease without esophagitis

== ENCOUNTER → 2019-10-23 08:09 | Outpatient (CLI) | payer MEDICARE ==
[2019-07-17 07:11] VITALS: BMI 33.1
[~2019-10-23 08:09] MED LIST changes: +FLUTICASONE PRO16 GM NASAL; +VOLTAREN100 GM TOPICAL; +VOLTAREN75 MG PO
== END | disposition home or self-care (01) ==
LOC: D.HCCARDIO 08:09
PROVIDERS: ATTEND Internal Medicine Cardiovascular Disease
DX: I25.10 Atherosclerotic heart disease of native coronary artery without angina pectoris (principal)

== ENCOUNTER 2019-11-09 06:11 | Outpatient (CLI) | payer MEDICARE ==
[~2019-11-09] VITALS: Ht 180.3 cm; Wt 114.7 kg
[2019-11-09] MEDS ORDERED: MELATONIN10 M1 PO (06:42)
[2019-11-09 06:56] VITALS: BP 124/70; Ht 180.3 cm; Wt 114.7 kg
== END 2019-11-09 11:00 | disposition home or self-care (01) ==
LOC: D.CATH 06:11
PROVIDERS: ATTEND Internal Medicine Cardiovascular Disease
DX: I25.119 Atherosclerotic heart disease of native coronary artery with unspecified angina pectoris (principal); R94.30 Abnormal result of cardiovascular function study, unspecified; I10 Essential (primary) hypertension; R07.9 Chest pain, unspecified; E78.5 Hyperlipidemia, unspecified; Z72.0 Tobacco use

== ENCOUNTER → 2020-01-08 10:52 | Outpatient (CLI) | payer MEDICARE ==
[2019-11-09 06:56] VITALS: BMI 35.2
[~2020-01-08 10:52] MED LIST changes: +MELATONIN10 M1 PO
== END | disposition home or self-care (01) ==
LOC: D.LAB 10:52
PROVIDERS: ATTEND Internal Medicine Pulmonary Disease
DX: R91.8 Other nonspecific abnormal finding of lung field (principal)

== ENCOUNTER → 2020-02-23 11:52 | Outpatient (CLI) | payer MEDICARE ==
[2019-11-09 06:56] VITALS: BMI 35.2
== END | disposition home or self-care (01) ==
LOC: D.LAB 11:52
PROVIDERS: ATTEND Internal Medicine Pulmonary Disease
DX: Z11.59 Encounter for screening for other viral diseases (principal)

== ENCOUNTER → 2020-09-04 14:31 | Outpatient (CLI) | payer MEDICARE ==
[2020-07-10 13:46] VITALS: BMI 37.2
[~2020-09-04 14:31] MED LIST changes: +CHLORHEXIDINE; +ELIQUIS2.5 MG PO; +OXYCODONE HCL5 M1 PO; +PROAIR HFA8.5 G1 INH; +VISTARIL50 MG PO
== END | disposition home or self-care (01) ==
LOC: D.US 14:31
PROVIDERS: ATTEND Orthopaedic Surgery
DX: R60.0 Localized edema (principal)